=== PATIENT | female | born 1995 | race Caucasian/White ===

== ENCOUNTER → 2023-05-14 | Outpatient (CLI) | payer BC ==
--- NOTE | 2023-06-01 13:31 | EM ---
EVENT MONITOR STUDY PERFORMED: A 14 day event monitor. FINDINGS: This is a 14 day event monitor. All available rhythm strips were reviewed. Predominant rhythm appears to be sinus with sinus tachycardia. There was 1 episode of what seems to be a short run of paroxysmal atrial tachycardia of about 5 to 6 beats. When the patient complained of feeling weak, tired and sometimes without specified symptoms, the rhythm was sinus. This is an unremarkable 14 day event monitor with 1 short run of PAT on auto capture. No correlation of any arrhythmia with the patient's perception of symptoms of feeling tired. MMODL / IJN: [id number] /
== END | disposition home or self-care (01) ==
LOC: RADECHMAIN 08:12
PROVIDERS: ATTEND Family Medicine
DX: R00.1 Bradycardia, unspecified (principal)
CPT/HCPCS: 93270